=== PATIENT | male | born 1945 | race Caucasian/White ===

== ENCOUNTER → 2018-07-28 | Outpatient (CLI) | payer MEDICARE, OTHER | END | disposition home or self-care (01) | LOC: LAB SHORT 11:18 → PLD 11:18 | DX: C44.212 Basal cell carcinoma of skin of right ear and external auricular canal (principal) | CPT/HCPCS: 88305 ==

== ENCOUNTER 2018-10-18 04:09 | Inpatient (IN) | payer MEDICARE, OTHER ==
[~2018-10-18] VITALS: Ht 177.8 cm; Wt 84.0 kg
[2018-10-18 04:26] LABS: BASOPHILS ABSOLUTE AUTO 0.07 K/mm3 (0.00-0.23); BASOPHILS PERCENT AUTO 2 % (0-2); EOSINOPHILS ABSOLUTE AUTO 0.03 K/mm3 (0.00-0.68); EOSINOPHILS PERCENT AUTO 1 % (0-6); Hematocrit 39.5 % (37.0-53.0); Hemoglobin 13.3 g/dL (13.5-17.5); IMMATURE GRAN ABSOLUTE AUTO 0.01 K/mm3 (0.00-0.10); IMMATURE GRAN PERCENT AUTO 0 % (0-1); LYMPHOCYTES ABSOLUTE AUTO 1.44 K/mm3 (0.84-5.20); LYMPHOCYTES PERCENT AUTO 34 % (21-46); MONOCYTES PERCENT AUTO 5 % (4-13); Mean Corpuscular HGB 31.1 pg (26.0-34.0); Mean Corpuscular HGB Conc 33.7 g/dL (31.5-36.5); Mean Corpuscular Volume 92 fL (80-100); Mean Platelet Volume 8.9 fL (9.1-12.4); NEUTROPHILS ABSOLUTE AUTO 2.48 K/mm3 (1.96-9.15); NEUTROPHILS PERCENT AUTO 59 % (41-73); Platelet Count 234 K/mm3 (150-400); RDW Coefficient Variation 12.1 % (11.7-14.2); RDW Standard Deviation 41.2 fL (35.1-46.3); Red Blood Cell Count 4.28 M/mm3 (4.30-5.90); White Blood Cell Count 4.23 K/mm3 (4.00-11.30)
[2018-10-18 04:48] LABS: Alanine Aminotransfer (ALT/SGP 23 U/L (12-78); Albumin, Blood 3.5 g/dL (3.4-5.0); Albumin/Globulin Ratio 1.1 (0.8-1.8); Alk Phos 44 U/L (50-136); Anion Gap 13 mmol/L (6-16); Aspartate Aminotrans (AST/SGOT 15 U/L (12-37); Bilirubin, Total 0.3 mg/dL (0.1-1.0); Blood Urea Nitrogen 15 mg/dL (8-24); Bun/Creatinine Ratio 16.7 (12.0-20.0); CO2, Blood 21 mmol/L (21-32); Calcium, Blood 8.3 mg/dL (8.5-10.1); Chloride, Blood 107 mmol/L (98-108); Globulin, Blood 3.3 g/dL (2.2-4.0); Glomerular Filtration Rate >60 (60-); Glucose, Blood 184 mg/dL (70-99); Potassium, Blood 3.4 mmol/L (3.5-5.5); Sodium, Blood 141 mmol/L (136-145); Total Protein, Blood 6.8 g/dL (6.4-8.2); Troponin I <0.015 ng/mL (0.000-0.040)
[2018-10-18] MEDS ORDERED: NORT25 (05:29)
--- NOTE | 2018-10-18 08:00 | NUR ---
ARRIVAL TO ICU 0800 - PT ARRIVED FROM ED TO ICU AT THIS TIME. HE IS INTUBATED AND ON VENT AC 16, TV 500, PEEP 5, FIO2 35%. LUNG SOUNDS COARSE. PT HAS BLOODY ORAL SECRETIONS. CHECKED FOR WOUND IN MOUTH BUT WAS UNABLE TO FIND SOURCE OF BLEEDING. OGT AND ETT SECURED. OGT ATTACHED TO LIWS. BUE RESTRAINED. PT OPENS EYES SPONTANEOUSLY AND PULLS AGAINST RESTRAINTS WHEN AWAKE. NIX CATH SECURED AND PATENT; URINE SENT TO LAB. AND DAUGHTER BEDSIDE, EDUCATED, AND UPDATED ON PLAN. AFEBRILE. PROPOFOL GTT INFUSING AT 50 MCG/KG/MIN. NS INFUSING AT 75 ML/HR PER ORDER. POTASSIUM REPLACEMENT INFUSING. NSR, HR 80S. WILL CONTINUE TO MONITOR.
[2018-10-18] MEDS ORDERED: FISH OIL 1,001000 MG PO (08:30)
[2018-10-18] MEDS ORDERED: Hair, Skin & N1 EACH PO (08:30)
[2018-10-18] MEDS ORDERED: CHOL10002 PO (08:31)
[2018-10-18] MEDS ORDERED: ASCO500 PO (08:31)
[2018-10-18] MEDS ORDERED: MAGOXI400 PO (08:31)
[2018-10-18] MEDS ORDERED: Selenium100 MCG PO (08:32)
[2018-10-18 08:42] LABS: PO2 Arterial 129 mmHg (80-100); pH Blood Arterial 7.47 (7.35-7.45)
[2018-10-18 09:07] LABS: Source, Urine Catheter
[2018-10-18 09:22] LABS: Bilirubin, Urine Neg (Neg); Blood, Urine 1+ (Neg); Glucose Qualitative, Urine Neg (Neg); Ketones, Urine 2+ (Neg); Leukocyte Esterase, Urine Neg (Neg); Nitrite, Urine Neg (Neg); Protein, Urine Neg (Neg); Specific Gravity, Urine 1.005 (1.003-1.022); Urobilinogen, Urine NORM (Normal)
[2018-10-18 09:35] LABS: U Amphetamine Screen Not Detected; U Barbituate Screen Not Detected; U Benzodiazapine Screen DETECTED; U Buprenorphine Screen Not Detected; U Cannabinoids Screen Not Detected; U Cocaine Screen Not Detected; U Methadone Screen Not Detected; U Methamphetamine Screen Not Detected; U Opiates Screen Not Detected; U Oxycodone Screen Not Detected; U Phencyclidine Screen Not Detected; U Propoxyphene Screen Not Detected
[2018-10-18 09:37] LABS: Appearance, Urine Clear (Clear); Color, Urine Yellow (P-Yellow)
[2018-10-18 09:39] LABS: Bacteria Not Seen /hpf; Squamous Epithelial Cells Not Seen /hpf (Few); White Blood Cells, Urine Not Seen /hpf (0-5)
--- NOTE | 2018-10-18 12:32 | NUR ---
ECHOCARDIOGRAM COMPLETE
--- NOTE | 2018-10-18 12:45 | NUR ---
REASSESSMENT PT REMAINS INTUBATED AND SEDATED PROPOFOL GTT INFUSING AT 50 MCG/KG/MIN. PT HAD A SHORT PERIOD OF NO SEDATION AND BECAME AROUSED, PULLING AT RESTRAINTS BUT WAS ABLE TO FOLLOW COMMANDS AND SHAKE HEAD YES/NO. DENIED PAIN WHEN ASKED. EEG NOW BEDSIDE FOR TEST. VSS. BP SLIGHTLY ELEVATED; WILL MONITOR. AFEBRILE. NSR, HR 70S. BUE RESTRAINED. OGT ATTACHED TO LIWS; JENI COLORED OUTPUT. NIX CATH SECURED AND PATENT. FAMILY BEDSIDE. MIV CONTINUING TO INFUSE. WILL CONTINUE TO MONITOR.
[2018-10-18 15:45] LABS: Hematocrit 39.9 % (37.0-53.0); Hemoglobin 13.2 g/dL (13.5-17.5)
--- NOTE | 2018-10-18 16:39 | NUR ---
REASSESSMENT PT REMAINS INTUBATED AND SEDATED. BEDSIDE. NO S/S PAIN AT THIS TIME. EEG COMPLETED. PT HAS HAD APPROX 350 ML BLOOD TINGED OUTPUT FROM OGT; MD COWAN NOTIFIED AND GI CONSULTED. PROTONIX GTT STARTED AT THIS TIME. PROPOFOL GTT INFUSING AT 50 MCG/KG/MIN. MIV NS INFUSING AT 75 ML/HR PER ORDER. BUE RESTRAINED. HOB ELEVATED. VENT AC 12, TV 500, PEEP 5, FIO2 30%. LUNG SOUNDS CLEAR AT THIS TIME. NSR 80S. WILL CONTINUE TO MONITOR.
[2018-10-18 17:19] LABS: International Normalized Ratio 0.97; Prothrombin Time Results 10.3 Sec (9.7-11.5)
--- NOTE | 2018-10-18 18:21 | NUR ---
SHIFT SUMMARY PT ARRIVED FROM ED THIS AM AT 0800. HAS BEEN INTUBATED ON VENT AC 12, TV 500, PEEP 5, FIO2 30%. SEDATED MOST OF SHIFT EXCEPT DURING EEG. PT WAS ABLE TO OPEN EYES SPONTANEOUSELY, FOLLOW COMMANDS APPROPRIATELY, AND SHAKE HEAD YES/NO TO QUESTIONS. FAMILY BEDSIDE MOST OF SHIFT. HAD BLOODY ORAL SECRETIONS AT START OF SHIFT AND HAS CLEARED SINCE THEN. PT HAD 350 ML DARK BLOOD TINGED OUTPUT FROM OGT WITH CLOTS IN TUBE. MD COLEY CONSULTED AND SAW PT. HE STATED PLAN IS TO CHECK H/H THROUGHOUT NIGHT AND IF DROPS SIGNIFICANTLY, WILL SCOPE TOMORROW. PROTONIX GTT STARTED. MIV CONTINUES TO INFUSE AT 75 ML/HR AND PROPOFOL GTT INFUSING AT 50 MCG/KG/MIN. BUE RESTRAINED ENTIRE SHIFT. PT TURNED Q2H AND HOB ELEVATED. EEG COMPLETED. UPDATED THROUGHOUT SHIFT. WILL GIVE BEDSIDE, HANDOFF REPORT TO KINZA RN.
--- NOTE | 2018-10-18 19:20 | NUR ---
ASSUME CARE; REPORT RECIEVED FROM CHUCK OFF GOING RN. REMAINS INTUBATED, SEDATED AND RESTRAINED. VENT SETTINGS AC 12, TV 500, FIO2 30%, PEEP 5, RATE 12, SPO2 96-98%. LUNG SOUNDS CLEAR UPPER LOBES WITH COARSE SOUNDS IN THE BASES. SX THICK BROWNISH SECREATIONS PER ETT. THIN CLEAR ORAL SECRETIONS WITH ORAL CARE. 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 ABDOMEN SOFT WITH BOWEL SOUNDS FOUR QUADS. NIX PATENT DRAINING LISSETTE URINE. REMAINS IN WRIST RESTRAINTS TO PREVENT INADVERTENT REMOVAL OF LINES/TUBES. TRACE EDEMA NOTED TO UPPER EXTREMITIES. UPPER EXTREMITIES PLACED ON PILLOWS AND TWO GOLD COLORED RINGS REMOVED AND GIVEN TO WHO IS AT BEDSIDE. CONTINUE TO MONITOR AND REPORT CHANGE IN PATIENT CONDITION.
[2018-10-19 03:22] LABS: Hematocrit 35.5 % (37.0-53.0); Hemoglobin 12.1 g/dL (13.5-17.5); Mean Corpuscular HGB 31.3 pg (26.0-34.0); Mean Corpuscular HGB Conc 34.1 g/dL (31.5-36.5); Mean Corpuscular Volume 92 fL (80-100); Mean Platelet Volume 9.1 fL (9.1-12.4); Platelet Count 215 K/mm3 (150-400); RDW Coefficient Variation 12.5 % (11.7-14.2); RDW Standard Deviation 42.1 fL (35.1-46.3); Red Blood Cell Count 3.86 M/mm3 (4.30-5.90); White Blood Cell Count 7.58 K/mm3 (4.00-11.30)
[2018-10-19 03:40] LABS: Alanine Aminotransfer (ALT/SGP 19 U/L (12-78); Albumin, Blood 3.1 g/dL (3.4-5.0); Albumin/Globulin Ratio 1.1 (0.8-1.8); Alk Phos 49 U/L (50-136); Anion Gap 6 mmol/L (6-16); Aspartate Aminotrans (AST/SGOT 20 U/L (12-37); Bilirubin, Total 0.5 mg/dL (0.1-1.0); Blood Urea Nitrogen 7 mg/dL (8-24); Bun/Creatinine Ratio 9.2 (12.0-20.0); CO2, Blood 25 mmol/L (21-32); Calcium, Blood 7.5 mg/dL (8.5-10.1); Chloride, Blood 112 mmol/L (98-108); Creatinine, Blood 0.76 mg/dL (0.60-1.20); Globulin, Blood 2.7 g/dL (2.2-4.0); Glomerular Filtration Rate >60 (60-); Glucose, Blood 123 mg/dL (70-99); Potassium, Blood 3.2 mmol/L (3.5-5.5); Sodium, Blood 143 mmol/L (136-145); Total Protein, Blood 5.8 g/dL (6.4-8.2)
[2018-10-19 05:36] LABS: PCO2 Arterial 23.8 mmHg (35-45); PO2 Arterial 72.9 mmHg (80-100); pH Blood Arterial 7.59 (7.35-7.45)
--- NOTE | 2018-10-19 06:00 | NUR ---
SHIFT SUMMARY: REMAINS INTUBATED VENT SETTINGS P/S 7/5 AT 25% RATE 16-20 SPO2 95-97% LUNG SOUNDS REMAIN CLEAR UPPER LOBES WITH DECREASED SOUNDS IN THE BASES. MONITOR INTACT SHOWING SINUS RHYTHM. HEART RATE 70'S-80'S. DENIES DISCOMFORT. ATTEMPTS TO COMMUNICATE WITH GESTURES NODS AND SHAKES HEAD APPROIATLY TO YES/NO QUESTION. REMAINS AT BEDSIDE ATTENTIVE TO NEEDS/CARES. ABDOMEN SOFT WITH BOWEL SOUNDS FOUR QUADS. NIX PATENT DRAINING LISSETTE URINE. REMAINS IN SOFT WRIST RESTRAINTS TO PREVENT INADVERTENT REMOVAL OF LINES/TUBES. GRIGGS WELL TRACE EDEMA NOTED IN HANDS. CONTINUE TO MONITOR AND REPORT CHANGE IN PATIENT CONDITION. PATIENT INDICATES NOT ABLE TO MOVE LEFT LEG WELL RIGHT LEG
--- NOTE | 2018-10-19 08:02 | NUR ---
CARE ASSUMED CARE AND REPORT ASSUMED FROM [place]. PT INTUBATED AND SEDATED. VENT AC 12, 500, 5, FIO2 25%. LUNF SOUNDS CLEAR. BUE RESTRAINED. PROPOFOL GTT INFUSING AT 50 MCG/KG/MIN, BUT PT IS FIDGETING IN BED, PULLING AGAINST RESTRAINTS, AND GRIMACING. WHEN ASKED IF HE IS IN PAIN, HE SHAKES HEAD NO. BEDSIDE. NSR, HR 70-80S. BP STABLE. NIX CATH SECURED AND PATENT; URINE SLIGHTLY GREEN TINGED, WILL MONITOR. NS INFUSING AT 75ML/HR PER ORDER. PROTONIX GTT INFUSING AT 10 ML/HR. MD COWAN CALLED FOR ADDITIONAL MEDICINE TO HELP PT RELAX; VERBAL ORDER TO EXTUBATE INSTEAD. WILL REPLACE POTASSIUM AND CALCIUM AND PREPARE FOR EXTUBATION.
--- NOTE | 2018-10-19 09:12 | NUR ---
EXTUBATION SEDATION OFF AND PT EXTUBATED AT 0820. TOLERATED WELL. SINCE THEN, HAS BEEN SITTING UP IN BED WITH AT BEDSIDE. POTASSIUM AND CALCIUM REPLACMENT INFUSING PER ORDERS. PT CALM AND COOPERATIVE. WILL CONTINUE TO MONITOR.
--- NOTE | 2018-10-19 12:07 | NUR ---
REASSESSMENT PT SAT UP IN CHAIR FOR APPROX 1 HOUR AND THEN INDPENDENTLY GOT BACK INTO BED. VSS. SITTING UP TALKING WITH FRIEND. NS MIV INFUSING AT 75 ML/HR WITH POTASSIUM REPLACEMENT. NO COMPLAINTS AT THIS TIME. SPO2 96% ON RA. TOLERATING PO WITHOUT CHOKING OR ASPIRATION RISK. WILL CONTINUE TO MONITOR.
--- NOTE | 2018-10-19 18:48 | NUR ---
SHIFT SUMMARY PT EXTUBATED AT 0820 AND SINCE THEN HAS GOTTEN OUT OF BED AND INTO CHAIR, AND VISITED WITH FRIENDS AND FAMILY THOR. MD CALVILLO BEDSIDE TALKING WITH PT AND AT THIS TIME. MIV DISCONTINUED. PT TOLERATING PO WITH NO DIFFICULTY. DENIED PAIN ENTIRE SHIFT. A/O X 3, PLEASANT, CALM AND COOPERATIVE. CONTINUES IN NSR, HR 70-90. BP ELEVATED PAST FEW READINGS; WILL MEDICATE. NO COMPLAINTS. WILL GIVE BEDSIDE, HANDOFF REPORT TO NOC RN.
--- NOTE | 2018-10-19 19:00 | NUR ---
ASSUME CARE REPORT RECIEVED FROM OFF GOING MARIBETH TERRAZAS. MONITOR INTACT SHOWING SINUS RHYTYM. HEART RATE 70'S. DENIES DISCOMFORT . VISITS WITH VISITORS IN ROOM. AT BEDSIDE ATTENTIVE TO NEEDS CARES DR MAR AT BEDSIDE. LUNGS CLEAR RESPIRATIONS REGULAR AND EASY ON ROOM AIR SPO2 97% ABDOMEN SOFT WITH BOWEL ASOUNDS FOUR QUADS. GAIT STEADY WITH MINIMAL ASSIST. VOIDS LISSETTE URINE. CONTINUE TO MONITOR AND REPORT CHANGE IN PATIENT CONDITION
--- NOTE | 2018-10-20 02:30 | NUR ---
PT INFORMED OF PENDING TRANSFER TO [facility]. STATES FRANKEL NOTIFY IN AM.
[2018-10-20 03:28] LABS: BASOPHILS ABSOLUTE AUTO 0.07 K/mm3 (0.00-0.23); BASOPHILS PERCENT AUTO 1 % (0-2); EOSINOPHILS PERCENT AUTO 2 % (0-6); Hematocrit 38.3 % (37.0-53.0); Hemoglobin 12.4 g/dL (13.5-17.5); IMMATURE GRAN ABSOLUTE AUTO 0.01 K/mm3 (0.00-0.10); IMMATURE GRAN PERCENT AUTO 0 % (0-1); LYMPHOCYTES ABSOLUTE AUTO 1.39 K/mm3 (0.84-5.20); LYMPHOCYTES PERCENT AUTO 22 % (21-46); MONOCYTES ABSOLUTE AUTO 0.58 K/mm3 (0.16-1.47); MONOCYTES PERCENT AUTO 9 % (4-13); Mean Corpuscular HGB 31.3 pg (26.0-34.0); Mean Corpuscular HGB Conc 32.4 g/dL (31.5-36.5); Mean Corpuscular Volume 97 fL (80-100); Mean Platelet Volume 9.1 fL (9.1-12.4); NEUTROPHILS ABSOLUTE AUTO 4.05 K/mm3 (1.96-9.15); NEUTROPHILS PERCENT AUTO 65 % (41-73); Platelet Count 209 K/mm3 (150-400); RDW Coefficient Variation 12.4 % (11.7-14.2); RDW Standard Deviation 44.7 fL (35.1-46.3); Red Blood Cell Count 3.96 M/mm3 (4.30-5.90)
[2018-10-20 03:44] LABS: Anion Gap 6 mmol/L (6-16); Blood Urea Nitrogen 9 mg/dL (8-24); Bun/Creatinine Ratio 10.7 (12.0-20.0); CO2, Blood 24 mmol/L (21-32); Calcium, Blood 8.3 mg/dL (8.5-10.1); Chloride, Blood 114 mmol/L (98-108); Creatinine, Blood 0.85 mg/dL (0.60-1.20); Glomerular Filtration Rate >60 (60-); Glucose, Blood 123 mg/dL (70-99); Magnesium, Blood 2.1 mg/dL (1.6-2.4); Potassium, Blood 3.7 mmol/L (3.5-5.5); Sodium, Blood 144 mmol/L (136-145)
--- NOTE | 2018-10-20 03:45 | NUR ---
ASSUMED CARE- PT ARRIVES TO [facility] FROM ICU VIA WHEELCHAIR. PT CURRENTLY AOX4. VSS. VERY PLEASANT. LUNG SOUNDS CLEAR. PT DENIES PAIN, DIZZINESS, OR LIGHTHEADEDNESS AT THIS TIME. PT ORIENTED TO ROOM AND CALL LIGHT SYSTEM. WILL CONTINUE TO MONITOR. BED IN LOW POSITION, CALL LIGHT IN REACH.
--- NOTE | 2018-10-20 03:45 | NUR ---
TRANS JANE TO [id number] WHEELCHAIR TOLERATES TRANSFER WELL . REPORT PREVIOUSLY CALLED TO ACCEPTING MARIBETH GODOY.
--- NOTE | 2018-10-20 07:48 | NUR ---
pt laying in bed with eyes closed, wakes easily, denies pain, lungs are clear t/o, resp even and unlabord, has an occ nonprod cough per pt. resp even and unlabored, currently on r/a, hrr, tele in place running sr/st per monitor, see strip, no edema noted, ppp+2, cap refill <3 sec, vs stable, afebrile, iv sites are clear and patent, to r and l fa's, s.l. btx4, abd flat soft nontender, voids without diff, skin c/w/d, maew, xin, am care done, call light in reach.
--- NOTE | 2018-10-20 13:30 | NUR ---
pt resting quietly in bed, visiting with and visitors. no complaints or needs, call light in reach.
[2018-10-20] MEDS ORDERED: Keppra1000 MG PO (16:32)
--- NOTE | 2018-10-20 18:03 | NUR ---
NO ACUTE CHANGES THIS SHIFT. NO SIGNS OF SIEZURE ACTIVITY. NO NEEDS OR COMPLAINTS. CALL LIGHT IN REACH.
--- NOTE | 2018-10-20 18:25 | NUR ---
pt states he has a sore throat from being intubated. will call Dr. Key for cepacol lozengers. call light in reach.
--- NOTE | 2018-10-21 05:43 | NUR ---
SHIFT SUMMARY PATIENT ALERT AND ORIENTED X 3 THROUGHOUT SHIFT. HE WAS INDEPENDENT IN THE ROOM AFTER IV WAS DISCOMNNECTED. HE DENIED ANY UNMET NEEDS AND WAS ABLE TO EFFECTIVELY MAKE NEEDS KNOWN. PT SLEPT WELL DURING THE NIGHT, WAKING EASILY FOR VITALS AND ASSESSMENTS. PT DENIED ANY COMPLAINTS OF PAIN OR DISOMFORT. PT VITALS WERE STABLE, ALTHOUGH HIS BLOOD PRESSURE WAS SLIGHTLY ELEVATED DURING THE SHIFT. PT WOKE EARLY AND TOOK A SHOWER, SHAVED AND GOT READY FOR HIS DAY WITH MINIMAL ASSISTANCE. HE STATED THAT HE IS READY TO GO HOME AND CONTINUES TO HAVE NO SEIZURE ACTIVITY. PT WILL CONTINUE TO BE MONITORED UNTIL HANDOFF TO DAYSHIFT RN.
--- NOTE | 2018-10-21 08:07 | NUR ---
pt showered and dressed, ready to go home this am. states he slept pretty well last night, is waiting on his to get here. a/ox3, pleasant and cooperative with care, follows commands well, denies pain, lungs are clear t/o, is on r/a, hrr, no edema noted, ppp+2, cap refill <3sec, vs stable, afebrile, ivs have been removed durring the night, btx4, abd flat soft nontender, voids without diff, skin c/w/d, maew, xin, call light in reach.
--- NOTE | 2018-10-21 09:33 | NUR ---
pt has been discharged to home, charge nurse went over all his medications with him, called in new meds to his pharmacy, made appt for f/u with Dr. Rosenbaum. pt has all his belongings, left via wheelchair with housing property manager in attendence.
== END 2018-10-21 09:34 | disposition home or self-care (01) | DRG 100 ==
LOC: ER 04:09 → ICUW 06:01 → PCU 10-20 03:44
PROVIDERS: Emergency Medicine; Hospitalist; Internal Medicine Critical Care Medicine; ADMIT Internal Medicine
PROC: 0BH17EZ Insertion of Endotracheal Airway into Trachea, Via Natural or Artificial Opening (ICD-10-PCS; principal; 2018-10-18)
PROC: 5A1945Z Respiratory Ventilation, 24-96 Consecutive Hours (ICD-10-PCS; 2018-10-18)
DX: R56.9 Unspecified convulsions (principal); J96.00 Acute respiratory failure, unspecified whether with hypoxia or hypercapnia; T17.998A Other foreign object in respiratory tract, part unspecified causing other injury, initial encounter; I10 Essential (primary) hypertension; F32.9 Major depressive disorder, single episode, unspecified
CPT/HCPCS: 31500; 31720; 36415; 36600; 51702; 70450; 71045; 71260; 80048; 80053; 81001; 82803; 83605; 83735; 84145; 84484; 85014; 85018; 85025; 85027; 85610; 85730; 93005; 93010; 93306; 94002; 94003; 94667; 95819; 96361-59; 96374-59; 96375-59; 99291-25; 99292; C9113; J0330; J0610; J1650; J1953; J2704; J3480; J7030; Q9967

== ENCOUNTER 2019-04-20 04:17 | Emergency (ER) | payer MEDICARE, OTHER ==
[~2019-04-20] VITALS: Ht 177.8 cm; Wt 86.2 kg
[~2019-04-20 04:17] MED LIST: ASCO500 PO; CHOL10002 PO; FISH OIL 1,001000 MG PO; Hair, Skin & N1 EACH PO; Keppra1000 MG PO; MAGOXI400 PO; NORT25; Selenium100 MCG PO
[2019-04-20 04:52] LABS: BASOPHILS ABSOLUTE AUTO 0.06 K/mm3 (0.00-0.23); BASOPHILS PERCENT AUTO 2 % (0-2); EOSINOPHILS ABSOLUTE AUTO 0.06 K/mm3 (0.00-0.68); EOSINOPHILS PERCENT AUTO 2 % (0-6); Hematocrit 39.8 % (37.0-53.0); Hemoglobin 12.8 g/dL (13.5-17.5); IMMATURE GRAN PERCENT AUTO 0 % (0-1); LYMPHOCYTES ABSOLUTE AUTO 1.48 K/mm3 (0.84-5.20); LYMPHOCYTES PERCENT AUTO 39 % (21-46); MONOCYTES ABSOLUTE AUTO 0.22 K/mm3 (0.16-1.47); MONOCYTES PERCENT AUTO 6 % (4-13); Mean Corpuscular HGB 30.3 pg (26.0-34.0); Mean Corpuscular HGB Conc 32.2 g/dL (31.5-36.5); Mean Corpuscular Volume 94 fL (80-100); Mean Platelet Volume 9.2 fL (9.1-12.4); NEUTROPHILS ABSOLUTE AUTO 2.02 K/mm3 (1.96-9.15); NEUTROPHILS PERCENT AUTO 53 % (41-73); Platelet Count 226 K/mm3 (150-400); RDW Coefficient Variation 13.2 % (11.7-14.2); RDW Standard Deviation 45.6 fL (35.1-46.3); Red Blood Cell Count 4.23 M/mm3 (4.30-5.90); White Blood Cell Count 3.84 K/mm3 (4.00-11.30)
[2019-04-20 05:10] LABS: Alanine Aminotransfer (ALT/SGP 15 U/L (12-78); Albumin, Blood 3.4 g/dL (3.4-5.0); Alk Phos 54 U/L (50-136); Anion Gap 9 mmol/L (6-16); Aspartate Aminotrans (AST/SGOT 13 U/L (12-37); Bilirubin, Total 0.3 mg/dL (0.1-1.0); Blood Urea Nitrogen 18 mg/dL (8-24); Bun/Creatinine Ratio 22.4 (12.0-20.0); CO2, Blood 22 mmol/L (21-32); Calcium, Blood 8.6 mg/dL (8.5-10.1); Chloride, Blood 111 mmol/L (98-108); Creatinine, Blood 0.81 mg/dL (0.60-1.20); Globulin, Blood 3.3 g/dL (2.2-4.0); Glomerular Filtration Rate >60 (60-); Glucose, Blood 128 mg/dL (70-99); Potassium, Blood 3.8 mmol/L (3.5-5.5); Sodium, Blood 142 mmol/L (136-145); Total Protein, Blood 6.7 g/dL (6.4-8.2)
[2019-04-20 05:23] LABS: Source, Urine Clean Catch
[2019-04-20 05:27] LABS: Bilirubin, Urine Neg (Neg); Blood, Urine Neg (Neg); Glucose Qualitative, Urine Neg (Neg); Ketones, Urine Neg (Neg); Leukocyte Esterase, Urine Neg (Neg); Nitrite, Urine Neg (Neg); Protein, Urine Neg (Neg); Specific Gravity, Urine 1.025 (1.003-1.022); Urobilinogen, Urine NORM (Normal)
[2019-04-20 05:29] LABS: Appearance, Urine Clear (Clear); Color, Urine Yellow (P-Yellow)
== END 2019-04-20 06:17 | disposition home or self-care (01) ==
LOC: ER 04:17
PROVIDERS: Emergency Medicine
DX: R56.9 Unspecified convulsions (principal); Z79.899 Other long term (current) drug therapy; F32.9 Major depressive disorder, single episode, unspecified
CPT/HCPCS: 36415; 80053; 81003; 85025; 93005; 93010; 99284-25

== ENCOUNTER 2019-05-17 17:08 | Emergency (ER) | payer MEDICARE, OTHER ==
[~2019-05-17] VITALS: Ht 177.8 cm; Wt 77.1 kg
[2019-05-17 17:33] LABS: BASOPHILS ABSOLUTE AUTO 0.06 K/mm3 (0.00-0.23); BASOPHILS PERCENT AUTO 1 % (0-2); EOSINOPHILS ABSOLUTE AUTO 0.09 K/mm3 (0.00-0.68); EOSINOPHILS PERCENT AUTO 1 % (0-6); Hemoglobin 13.2 g/dL (13.5-17.5); IMMATURE GRAN ABSOLUTE AUTO 0.02 K/mm3 (0.00-0.10); IMMATURE GRAN PERCENT AUTO 0 % (0-1); LYMPHOCYTES ABSOLUTE AUTO 3.24 K/mm3 (0.84-5.20); LYMPHOCYTES PERCENT AUTO 45 % (21-46); MONOCYTES ABSOLUTE AUTO 0.33 K/mm3 (0.16-1.47); MONOCYTES PERCENT AUTO 5 % (4-13); Mean Corpuscular HGB 30.2 pg (26.0-34.0); Mean Corpuscular HGB Conc 33.8 g/dL (31.5-36.5); Mean Corpuscular Volume 89 fL (80-100); Mean Platelet Volume 9.1 fL (9.1-12.4); NEUTROPHILS ABSOLUTE AUTO 3.43 K/mm3 (1.96-9.15); NEUTROPHILS PERCENT AUTO 48 % (41-73); Platelet Count 257 K/mm3 (150-400); RDW Coefficient Variation 12.9 % (11.7-14.2); RDW Standard Deviation 42.5 fL (35.1-46.3); Red Blood Cell Count 4.37 M/mm3 (4.30-5.90); White Blood Cell Count 7.17 K/mm3 (4.00-11.30)
[2019-05-17 17:56] LABS: Alanine Aminotransfer (ALT/SGP 21 U/L (12-78); Albumin, Blood 3.9 g/dL (3.4-5.0); Albumin/Globulin Ratio 1.1 (0.8-1.8); Alk Phos 53 U/L (50-136); Anion Gap 13 mmol/L (6-16); Aspartate Aminotrans (AST/SGOT 12 U/L (12-37); Bilirubin, Total 0.3 mg/dL (0.1-1.0); Blood Urea Nitrogen 16 mg/dL (8-24); Bun/Creatinine Ratio 19.8 (12.0-20.0); CO2, Blood 19 mmol/L (21-32); Calcium, Blood 8.7 mg/dL (8.5-10.1); Chloride, Blood 105 mmol/L (98-108); Creatinine, Blood 0.81 mg/dL (0.60-1.20); Globulin, Blood 3.4 g/dL (2.2-4.0); Glomerular Filtration Rate >60 (60-); Glucose, Blood 163 mg/dL (70-99); Potassium, Blood 3.1 mmol/L (3.5-5.5); Sodium, Blood 137 mmol/L (136-145); Total Protein, Blood 7.3 g/dL (6.4-8.2)
[2019-05-17] MEDS ORDERED: LEVE500 PO (19:15)
== END 2019-05-17 19:42 | disposition home or self-care (01) ==
LOC: ER 17:08
PROVIDERS: Physician Assistant
DX: G40.409 Other generalized epilepsy and epileptic syndromes, not intractable, without status epilepticus (principal); S01.01XA Laceration without foreign body of scalp, initial encounter; F32.9 Major depressive disorder, single episode, unspecified; Z79.899 Other long term (current) drug therapy; W18.39XA Other fall on same level, initial encounter
CPT/HCPCS: 12001; 70450; 80053; 84484; 85025; 93005; 93010; 96374-59; 99284-25; J2405

== ENCOUNTER 2019-05-21 10:43 | Emergency (ER) | payer MEDICARE, OTHER ==
[~2019-05-21] VITALS: Ht 177.8 cm; Wt 77.1 kg
[~2019-05-21 10:43] MED LIST changes: +LEVE500 PO
== END 2019-05-21 11:01 | disposition home or self-care (01) ==
LOC: ER 10:43
DX: S01.01XD Laceration without foreign body of scalp, subsequent encounter (principal); F32.9 Major depressive disorder, single episode, unspecified; Z79.899 Other long term (current) drug therapy; X58.XXXD Exposure to other specified factors, subsequent encounter

== ENCOUNTER 2020-06-27 16:36 | Emergency (ER) | payer MEDICARE, OTHER ==
[~2020-06-27] VITALS: Ht 177.8 cm; Wt 81.7 kg
[2020-06-27 17:21] LABS: BASOPHILS ABSOLUTE AUTO 0.04 K/mm3 (0.00-0.23); BASOPHILS PERCENT AUTO 1 % (0-2); EOSINOPHILS ABSOLUTE AUTO 0.07 K/mm3 (0.00-0.68); EOSINOPHILS PERCENT AUTO 1 % (0-6); Hematocrit 42.4 % (37.0-53.0); Hemoglobin 14.6 g/dL (13.5-17.5); IMMATURE GRAN ABSOLUTE AUTO 0.03 K/mm3 (0.00-0.10); IMMATURE GRAN PERCENT AUTO 1 % (0-1); LYMPHOCYTES ABSOLUTE AUTO 2.23 K/mm3 (0.84-5.20); LYMPHOCYTES PERCENT AUTO 44 % (21-46); MONOCYTES ABSOLUTE AUTO 0.41 K/mm3 (0.16-1.47); MONOCYTES PERCENT AUTO 8 % (4-13); Mean Corpuscular HGB 32.7 pg (26.0-34.0); Mean Corpuscular HGB Conc 34.4 g/dL (31.5-36.5); Mean Corpuscular Volume 95 fL (80-100); NEUTROPHILS ABSOLUTE AUTO 2.27 K/mm3 (1.96-9.15); NEUTROPHILS PERCENT AUTO 45 % (41-73); RDW Standard Deviation 41.8 fL (35.1-46.3); Red Blood Cell Count 4.46 M/mm3 (4.30-5.90); White Blood Cell Count 5.05 K/mm3 (4.00-11.30)
[2020-06-27 17:24] LABS: Alanine Aminotransfer (ALT/SGP 28 U/L (12-78); Albumin, Blood 3.4 g/dL (3.4-5.0); Albumin/Globulin Ratio 0.9 (0.8-1.8); Alk Phos 47 U/L (50-136); Anion Gap 9 mmol/L (6-16); Aspartate Aminotrans (AST/SGOT 33 U/L (12-37); Bilirubin, Total 0.4 mg/dL (0.1-1.0); Blood Urea Nitrogen 20 mg/dL (8-24); Bun/Creatinine Ratio 18.5 (12.0-20.0); CO2, Blood 25 mmol/L (21-32); Calcium, Blood 8.8 mg/dL (8.5-10.1); Chloride, Blood 101 mmol/L (98-108); Creatinine, Blood 1.08 mg/dL (0.60-1.20); Globulin, Blood 3.6 g/dL (2.2-4.0); Glomerular Filtration Rate >60 (60-); Glucose, Blood 115 mg/dL (70-99); Potassium, Blood 4.1 mmol/L (3.5-5.5); Sodium, Blood 135 mmol/L (136-145)
[2020-06-27 17:29] LABS: Mean Platelet Volume 9.3 fL (9.1-12.4); Platelet Count 162 K/mm3 (150-400)
[2020-06-27 17:35] LABS: International Normalized Ratio 1.02; Prothrombin Time Results 10.9 Sec (9.7-11.5)
[2020-06-27] MEDS ORDERED: DIVA500ER PO (17:35)
== END 2020-06-27 18:16 | disposition home or self-care (01) ==
LOC: ER 16:36
PROVIDERS: Physician Assistant
DX: R20.0 Anesthesia of skin (principal); F32.9 Major depressive disorder, single episode, unspecified; G40.909 Epilepsy, unspecified, not intractable, without status epilepticus; Z79.899 Other long term (current) drug therapy
CPT/HCPCS: 36415; 70450; 80053; 85025; 85610; 93005; 93010; 99284-25

== ENCOUNTER 2021-05-01 06:52 | Day surgery (SDC) | payer MEDICARE, OTHER ==
[~2021-05-01] VITALS: Ht 177.8 cm; Wt 87.9 kg
[~2021-05-01 06:52] MED LIST changes: +DIVA500ER PO
--- NOTE | 2021-05-01 07:51 | NUR ---
05/01/21 0751 JAYME HOWARD TETRACAINE DROP INSERTED INTO R EYE AT 0739. PLEDGET INSERTED INTO R EYE AT 0741 AND TAPED SHUT.
== END 2021-05-01 09:15 | disposition home or self-care (01) ==
LOC: ORSCSDS 06:52
PROVIDERS: Ophthalmology
PROC: 08RJ3JZ Replacement of Right Lens with Synthetic Substitute, Percutaneous Approach (ICD-10-PCS; principal; 2021-05-01 08:30)
DX: H25.11 Age-related nuclear cataract, right eye (principal); I10 Essential (primary) hypertension; G40.909 Epilepsy, unspecified, not intractable, without status epilepticus; Z79.899 Other long term (current) drug therapy
CPT/HCPCS: J2001; J2250; J3010; J3301; J7040; V2632

== ENCOUNTER 2021-06-12 06:12 | Day surgery (SDC) | payer MEDICARE, OTHER ==
[~2021-06-12] VITALS: Ht 177.8 cm; Wt 87.8 kg
--- NOTE | 2021-06-12 06:42 | NUR ---
06/12/21 0642 Woodrow Waters TETRACAINE APPLIED TO LEFT EYE PER ORDERS AT 0627 AND PLEDGET APPLIED TO LEFT EYE PER ORDERS AT 0630.
== END 2021-06-12 08:11 | disposition home or self-care (01) ==
LOC: ORSCSDS 06:12
PROVIDERS: Ophthalmology
PROC: 08RK3JZ Replacement of Left Lens with Synthetic Substitute, Percutaneous Approach (ICD-10-PCS; principal; 2021-06-12 07:30)
DX: H25.12 Age-related nuclear cataract, left eye (principal); G40.909 Epilepsy, unspecified, not intractable, without status epilepticus; I10 Essential (primary) hypertension; J45.909 Unspecified asthma, uncomplicated; Z79.899 Other long term (current) drug therapy
CPT/HCPCS: J2001; J2250; J3010; J3301; J7040; V2632

== ENCOUNTER 2022-02-27 19:06 | Emergency (ER) | payer MEDICARE ==
[~2022-02-27] VITALS: Ht 175.3 cm; Wt 90.7 kg
[2022-02-27 20:02] LABS: BASOPHILS ABSOLUTE AUTO 0.04 K/mm3 (0.00-0.23); BASOPHILS PERCENT AUTO 1 % (0-2); EOSINOPHILS ABSOLUTE AUTO 0.02 K/mm3 (0.00-0.68); EOSINOPHILS PERCENT AUTO 0 % (0-6); Hematocrit 41.6 % (37.0-53.0); Hemoglobin 14.5 g/dL (13.5-17.5); IMMATURE GRAN ABSOLUTE AUTO 0.03 K/mm3 (0.00-0.10); IMMATURE GRAN PERCENT AUTO 1 % (0-1); LYMPHOCYTES ABSOLUTE AUTO 2.04 K/mm3 (0.84-5.20); LYMPHOCYTES PERCENT AUTO 42 % (21-46); MONOCYTES ABSOLUTE AUTO 0.51 K/mm3 (0.16-1.47); MONOCYTES PERCENT AUTO 11 % (4-13); Mean Corpuscular HGB 33.9 pg (26.0-34.0); Mean Corpuscular HGB Conc 34.9 g/dL (31.5-36.5); Mean Corpuscular Volume 97 fL (80-100); Mean Platelet Volume 9.1 fL (9.1-12.4); NEUTROPHILS ABSOLUTE AUTO 2.17 K/mm3 (1.96-9.15); NEUTROPHILS PERCENT AUTO 45 % (41-73); Platelet Count 135 K/mm3 (150-400); RDW Coefficient Variation 11.9 % (11.7-14.2); RDW Standard Deviation 42.3 fL (35.1-46.3); Red Blood Cell Count 4.28 M/mm3 (4.30-5.90); White Blood Cell Count 4.81 K/mm3 (4.00-11.30)
[2022-02-27 20:16] LABS: Source, Urine Clean Catch
[2022-02-27 20:28] LABS: Bilirubin, Urine Neg (Neg); Blood, Urine Neg (Neg); Glucose Qualitative, Urine Neg (Neg); Ketones, Urine 2+ (Neg); Leukocyte Esterase, Urine Neg (Neg); Nitrite, Urine Neg (Neg); Protein, Urine Neg (Neg); Specific Gravity, Urine 1.025 (1.003-1.022); Urobilinogen, Urine NORM (Normal)
[2022-02-27 20:31] LABS: Appearance, Urine Clear (Clear); Color, Urine Yellow (P-Yellow)
[2022-02-27 20:32] LABS: Albumin/Globulin Ratio 0.8 (0.8-1.8); Bilirubin, Total 0.4 mg/dL (0.1-1.0); Bun/Creatinine Ratio 21.2 (12.0-20.0); Calcium, Blood 8.5 mg/dL (8.5-10.1); Creatinine, Blood 0.8 mg/dL (0.60-1.20); Globulin, Blood 3.7 g/dL (2.2-4.0); Potassium, Blood 4.3 mmol/L (3.5-5.5); Total Protein, Blood 6.7 g/dL (6.4-8.2)
== END 2022-02-27 23:28 | disposition home or self-care (01) ==
LOC: ER 19:06
PROVIDERS: Student in an Organized Health Care Education/Training Program
DX: R53.1 Weakness (principal); F03.90 Unspecified dementia, unspecified severity, without behavioral disturbance, psychotic disturbance, mood disturbance, and anxiety; F32.A Depression, unspecified; W18.30XA Fall on same level, unspecified, initial encounter; Y92.511 Restaurant or cafe as the place of occurrence of the external cause; Z79.899 Other long term (current) drug therapy
CPT/HCPCS: 36415; 70450; 80053; 81003; 85025; 93005; 93010; 99284-25

== ENCOUNTER → 2022-11-24 | Outpatient (CLI) | payer MEDICARE, OTHER ==
[2022-11-24 16:49] LABS: BASOPHILS ABSOLUTE AUTO 0.05 K/mm3 (0.00-0.23); BASOPHILS PERCENT AUTO 1 % (0-2); EOSINOPHILS ABSOLUTE AUTO 0.04 K/mm3 (0.00-0.68); EOSINOPHILS PERCENT AUTO 1 % (0-6); Hematocrit 41.1 % (37.0-53.0); Hemoglobin 13.9 g/dL (13.5-17.5); IMMATURE GRAN ABSOLUTE AUTO 0.02 K/mm3 (0.00-0.10); IMMATURE GRAN PERCENT AUTO 0 % (0-1); LYMPHOCYTES ABSOLUTE AUTO 2.25 K/mm3 (0.84-5.20); LYMPHOCYTES PERCENT AUTO 41 % (21-46); MONOCYTES ABSOLUTE AUTO 0.49 K/mm3 (0.16-1.47); MONOCYTES PERCENT AUTO 9 % (4-13); Mean Corpuscular HGB 33.3 pg (26.0-34.0); Mean Corpuscular HGB Conc 33.8 g/dL (31.5-36.5); Mean Corpuscular Volume 99 fL (80-100); Mean Platelet Volume 9.1 fL (9.1-12.4); NEUTROPHILS ABSOLUTE AUTO 2.71 K/mm3 (1.96-9.15); NEUTROPHILS PERCENT AUTO 49 % (41-73); Platelet Count 223 K/mm3 (150-400); RDW Standard Deviation 43.7 fL (35.1-46.3); Red Blood Cell Count 4.17 M/mm3 (4.30-5.90); White Blood Cell Count 5.56 K/mm3 (4.00-11.30)
[2022-11-24 17:20] LABS: Alanine Aminotransfer (ALT/SGP 24 U/L (12-78); Albumin, Blood 3.7 g/dL (3.4-5.0); Alk Phos 43 U/L (50-136); Anion Gap 3 mmol/L (6-16); Aspartate Aminotrans (AST/SGOT 14 U/L (12-37); Bilirubin, Total 0.3 mg/dL (0.1-1.0); Blood Urea Nitrogen 17 mg/dL (8-24); CO2, Blood 28 mmol/L (21-32); Calcium, Blood 8.7 mg/dL (8.5-10.1); Chloride, Blood 106 mmol/L (98-108); Creatinine, Blood 0.71 mg/dL (0.60-1.20); Globulin, Blood 3.7 g/dL (2.2-4.0); Glomerular Filtration Rate 93 (60-); Glucose, Blood 93 mg/dL (70-99); Potassium, Blood 4.4 mmol/L (3.5-5.5); Sodium, Blood 137 mmol/L (136-145); Total Protein, Blood 7.4 g/dL (6.4-8.2); Valproic Acid 112.2 ug/mL (50.0-100.0)
== END | disposition home or self-care (01) ==
LOC: LAB SHORT 16:00 → LAB 16:00
PROVIDERS: Nurse Practitioner Family
DX: I49.9 Cardiac arrhythmia, unspecified (principal); G40.909 Epilepsy, unspecified, not intractable, without status epilepticus; R03.0 Elevated blood-pressure reading, without diagnosis of hypertension
CPT/HCPCS: 80053; 80164; 83735; 85025

== ENCOUNTER 2022-12-22 11:48 | Emergency (ER) | payer MEDICARE, OTHER ==
[~2022-12-22] VITALS: Ht 170.2 cm; Wt 78.9 kg
[2022-12-22] MEDS ORDERED: HYDCHL25 PO (11:52)
[2022-12-22 12:48] LABS: BASOPHILS ABSOLUTE AUTO 0.03 K/mm3 (0.00-0.23); BASOPHILS PERCENT AUTO 0 % (0-2); EOSINOPHILS ABSOLUTE AUTO 0.01 K/mm3 (0.00-0.68); EOSINOPHILS PERCENT AUTO 0 % (0-6); Hematocrit 38.3 % (37.0-53.0); Hemoglobin 13.8 g/dL (13.5-17.5); IMMATURE GRAN ABSOLUTE AUTO 0.04 K/mm3 (0.00-0.10); IMMATURE GRAN PERCENT AUTO 0 % (0-1); LYMPHOCYTES ABSOLUTE AUTO 1.33 K/mm3 (0.84-5.20); LYMPHOCYTES PERCENT AUTO 15 % (21-46); MONOCYTES ABSOLUTE AUTO 0.96 K/mm3 (0.16-1.47); MONOCYTES PERCENT AUTO 11 % (4-13); Mean Corpuscular HGB 33.4 pg (26.0-34.0); Mean Corpuscular Volume 93 fL (80-100); NEUTROPHILS ABSOLUTE AUTO 6.68 K/mm3 (1.96-9.15); NEUTROPHILS PERCENT AUTO 74 % (41-73); Platelet Count 189 K/mm3 (150-400); RDW Coefficient Variation 11.3 % (11.7-14.2); RDW Standard Deviation 38.5 fL (35.1-46.3); Red Blood Cell Count 4.13 M/mm3 (4.30-5.90); White Blood Cell Count 9.05 K/mm3 (4.00-11.30)
[2022-12-22 12:54] LABS: Prothrombin Time Results 10.5 Sec (9.7-11.5)
[2022-12-22 12:55] LABS: Alanine Aminotransfer (ALT/SGP 11 U/L (12-78); Albumin, Blood 3.3 g/dL (3.4-5.0); Alk Phos 31 U/L (50-136); Anion Gap 8 mmol/L (6-16); Aspartate Aminotrans (AST/SGOT 18 U/L (12-37); Bilirubin, Total 0.4 mg/dL (0.1-1.0); Blood Urea Nitrogen 13 mg/dL (8-24); Bun/Creatinine Ratio 14.1 (12.0-20.0); CO2, Blood 29 mmol/L (21-32); Chloride, Blood 91 mmol/L (98-108); Creatinine, Blood 0.92 mg/dL (0.60-1.20); Globulin, Blood 3.3 g/dL (2.2-4.0); Glomerular Filtration Rate 85 (60-); Glucose, Blood 116 mg/dL (70-99); Potassium, Blood 3.8 mmol/L (3.5-5.5); Sodium, Blood 128 mmol/L (136-145); Total Protein, Blood 6.6 g/dL (6.4-8.2); Valproic Acid 117.5 ug/mL (50.0-100.0)
[2022-12-22 15:30] VITALS: BP 156/92
== END 2022-12-22 15:51 | disposition home or self-care (01) ==
LOC: ER 11:48
PROVIDERS: Emergency Medicine; Physician Assistant
DX: E87.1 Hypo-osmolality and hyponatremia (principal); R29.898 Other symptoms and signs involving the musculoskeletal system; R79.89 Other specified abnormal findings of blood chemistry; Z79.899 Other long term (current) drug therapy
CPT/HCPCS: 70450; 80053; 80164; 82947; 85025; 85610; 85730; 93005; 93010; 99285-25

== ENCOUNTER → 2023-03-16 | Outpatient (CLI) | payer MEDICARE, OTHER ==
[~2023-03-16] MED LIST changes: +HYDCHL25 PO
[2023-03-16 13:17] LABS: BASOPHILS ABSOLUTE AUTO 0.04 K/mm3 (0.00-0.23); BASOPHILS PERCENT AUTO 1 % (0-2); EOSINOPHILS ABSOLUTE AUTO 0.02 K/mm3 (0.00-0.68); EOSINOPHILS PERCENT AUTO 1 % (0-6); Hematocrit 41.5 % (37.0-53.0); Hemoglobin 14.2 g/dL (13.5-17.5); IMMATURE GRAN ABSOLUTE AUTO 0.03 K/mm3 (0.00-0.10); IMMATURE GRAN PERCENT AUTO 1 % (0-1); LYMPHOCYTES ABSOLUTE AUTO 2.06 K/mm3 (0.84-5.20); LYMPHOCYTES PERCENT AUTO 47 % (21-46); MONOCYTES ABSOLUTE AUTO 0.39 K/mm3 (0.16-1.47); MONOCYTES PERCENT AUTO 9 % (4-13); Mean Corpuscular HGB 32.2 pg (26.0-34.0); Mean Corpuscular HGB Conc 34.2 g/dL (31.5-36.5); Mean Corpuscular Volume 94 fL (80-100); Mean Platelet Volume 8.9 fL (9.1-12.4); NEUTROPHILS ABSOLUTE AUTO 1.84 K/mm3 (1.96-9.15); NEUTROPHILS PERCENT AUTO 42 % (41-73); Platelet Count 241 K/mm3 (150-400); RDW Coefficient Variation 13.2 % (11.7-14.2); RDW Standard Deviation 45.1 fL (35.1-46.3); Red Blood Cell Count 4.41 M/mm3 (4.30-5.90); White Blood Cell Count 4.38 K/mm3 (4.00-11.30)
[2023-03-16 13:58] LABS: Alanine Aminotransfer (ALT/SGP 18 U/L (12-78); Albumin, Blood 3.8 g/dL (3.4-5.0); Albumin/Globulin Ratio 1.1 (0.8-1.8); Alk Phos 35 U/L (50-136); Anion Gap 6 mmol/L (6-16); Aspartate Aminotrans (AST/SGOT 12 U/L (12-37); Bilirubin, Total 0.5 mg/dL (0.1-1.0); Blood Urea Nitrogen 15 mg/dL (8-24); Bun/Creatinine Ratio 21.4 (12.0-20.0); CHOL/HDL RATIO 4.2; CO2, Blood 26 mmol/L (21-32); Calcium, Blood 9.2 mg/dL (8.5-10.1); Chloride, Blood 104 mmol/L (98-108); Cholesterol 243 mg/dL (50-200); Globulin, Blood 3.6 g/dL (2.2-4.0); Glomerular Filtration Rate 94 (60-); Glucose, Blood 95 mg/dL (70-99); HDL Cholesterol 58 mg/dL (>39); LDL/HDL RATIO 2.3; Low Density Lipoprotein Chol 131 mg/dL (0-110); Potassium, Blood 3.9 mmol/L (3.5-5.5); Sodium, Blood 136 mmol/L (136-145); Total Protein, Blood 7.4 g/dL (6.4-8.2); Triglycerides 271 mg/dL (30-160); Very Low Density Lipoprot Chol 54 mg/dL (6-32)
== END | disposition home or self-care (01) ==
LOC: LAB 11:49 → LAB SHORT 11:49
PROVIDERS: Physician Assistant
DX: E78.5 Hyperlipidemia, unspecified (principal); I10 Essential (primary) hypertension
CPT/HCPCS: 80053; 80061; 85025